=== PATIENT | male | born 1980 | race Native Hawaiian/Other Pacific Islander ===

== ENCOUNTER 2016-05-21 18:16 | Emergency (ER) | payer SELFPAY ==
[~2016-05-21] VITALS: Ht 190.5 cm; Wt 86.9 kg
[2016-05-21 18:18] VITALS: BP 121/72; PULSE 90; RESP 15; TEMP 98.4; O2SAT 98
[2016-05-21 21:06] LABS: BLOOD, URINE NEG (NEG); COMMENT (UR) CULT NOT INDICATED; CULTURE IF INDICATED CULT NOT INDICATED; GLUCOSE,URINE NEG (NEG); KETONE, URINE NEG (NEG); MUCUS URINE FEW /lpf (OCC); NITRITE,URINE NEG (NEG); PH, URINE 5.5 (5.0-8.5); URINE COLOR YELLOW (YELLW/STRAW)
[2016-05-21] MEDS ORDERED: KETOROLAC TROMETHAMINE 30 MG/ML (IVP) VIAL IV PUSH ONE (23:15)
[2016-05-21] MEDS ORDERED: SODIUM CHLOR 0.9% 1000 ML INJ 1,000 ML IV ONE (23:15)
[2016-05-22 00:37] LABS: AUTOMATED NEUTROPHIL # 4.8 TH/MM3 (1.8-7.7); BASOPHIL # 0.1 TH/MM3 (0-0.2); BASOPHIL % 0.8 % (0.0-2.0); EOSINOPHIL # 0.3 TH/MM3 (0-0.4); HEMATOCRIT 42.2 % (39.0-51.0); LYMPH % 46.9 % (9.0-44.0); LYMPHOCYTE # 5.5 TH/MM3 (1.0-4.8); MEAN CELL VOLUME 71.6 FL (80.0-100.0); MEAN CORPUSCULAR HEMOGLOBIN 23.2 PG (27.0-34.0); MEAN CORPUSCULAR HGB CONC 32.4 % (32.0-36.0); MONO % 8.5 % (0.0-8.0); NEUT % 40.8 % (16.0-70.0); PLATELET COUNT 210 TH/MM3 (150-450); RED CELL DISTRIBUTION WIDTH 15.2 % (11.6-17.2); WHITE BLOOD COUNT 11.7 TH/MM3 (4.0-11.0)
[2016-05-22 00:40] LABS: HEMO FLAGS AUTO DIFF
[2016-05-22 00:44] LABS: BANDS 1 % (0-6); EOSINOPHILS 6 % (0-4); NEUTROPHIL # MANUAL DIFF 3.6 TH/MM3 (1.8-7.7); PLATELET MORPHOLOGY NORMAL (NORMAL); POLYS (SEG NEUTROPHILS) 30 % (16-70); SCAN/DIFF FINAL DIFF MANUAL; TARGET CELLS 1+ (NORMAL); WBC DIFF SAMPLE 100
[2016-05-22 00:45] LABS: PLATELET ESTIMATE SMEAR NORMAL (NORMAL)
--- NOTE | 2016-05-22 01:14 | PD ---
HPI Chief Complaint: Flank/Kidney Pain Time Seen by Provider: 22:52 Travel History International Travel<30 days: No Contact w/Intl Traveler<30days: No Traveled to known affect area: No History of Present Illness HPI Patient is a 35 year old male who comes in complaining of left sided abdominal pain. He says this has been going on for the past few days. The pain started with some flank pain, but that went away and now he has had the left sided pain. He says the pain gets worse when he has a bowel movement. He has had some nausea, but denies vomiting. He has not had any fever or chills. He has not taken anything for pain. [facility] Past Medical History Medical History: Denies Significant Hx Tetanus Vaccination: > 5 Years Past Surgical History Surgical History: No Previous Surgery Social History Alcohol Use: No Tobacco Use: Yes Substance Use: No Allergies-Medications (Allergen,Severity, Reaction): Coded Allergies: No Known Allergies (Unverified , 05/21/16) Reported Meds & Prescriptions Reported Meds & Active Scripts Active No Active Prescriptions or Reported Medications Review of Systems Except as stated in HPI: all other systems reviewed are Neg General / Constitutional: No: Fever, Chills HENT: No: Headaches Cardiovascular: No: Chest Pain or Discomfort Respiratory: No: Shortness of Breath Gastrointestinal: Positive: Nausea, Abdominal Pain, No: Vomiting Genitourinary: No: Dysuria Musculoskeletal: No: Myalgias Skin: No Rash, No Change in Pigmentation Neurologic: No: Weakness, Dizziness Physical Exam Narrative GENERAL: Awake and alert in no acute distress. SKIN: Warm and dry. HEAD: Atraumatic. Normocephalic. EYES: Pupils equal and round. No scleral icterus. ENT: Mucous membranes pink and moist. NECK: Trachea midline. No JVD. CARDIOVASCULAR: Regular rate and rhythm. No murmur appreciated. RESPIRATORY: No accessory muscle use. Clear to auscultation. Breath sounds equal bilaterally. GASTROINTESTINAL: Abdomen soft, nondistended. Tender to the left lower quadrant. No rebound or guarding. No CVA tenderness. MUSCULOSKELETAL: No obvious deformities. No clubbing. No cyanosis. No edema. NEUROLOGICAL: Awake and alert. No obvious cranial nerve deficits. Motor grossly within normal limits. Normal speech. PSYCHIATRIC: Appropriate mood and affect; insight and judgment normal. Data Data Last Documented VS Vital Signs Date Time Temp Pulse Resp B/P Pulse Ox O2 Delivery O2 Flow Rate FiO2 05/21/16 18:18 98.4 90 15 121/72 98 Orders Urinalysis - C+S If Indicated (05/21/16 18:43) Complete Blood Count With Diff (05/21/16 23:10) Comprehensive Metabolic Panel (05/21/16 23:10) Ct Abd/Pel W Iv Contrast(Rout) (05/21/16 ) Ketorolac Inj (Toradol Inj) (05/21/16 23:15) Sodium Chlor 0.9% 1000 Ml Inj (Ns 1000 M (05/21/16 23:15) Labs Laboratory Tests Test 05/21/16 05/21/16 05/22/16 20:45 23:30 01:05 Urine Color YELLOW Urine Turbidity CLEAR Urine pH 5.5 Urine Specific [place] 1.015 Urine Protein NEG mg/dL Urine Glucose (UA) NEG mg/dL Urine Ketones NEG mg/dL Urine Occult Blood NEG Urine Nitrite NEG Urine Bilirubin NEG Urine Urobilinogen LESS THAN 2.0 MG/DL Urine Leukocyte Esterase NEG Urine Mucus FEW /lpf Microscopic Urinalysis Comment CULT NOT INDICATED White Blood Count 11.7 TH/MM3 Red Blood Count 5.90 MIL/MM3 Hemoglobin 13.7 GM/DL Hematocrit 42.2 % Mean Corpuscular Volume 71.6 FL Mean Corpuscular Hemoglobin 23.2 PG Mean Corpuscular Hemoglobin 32.4 % Concent Red Cell Distribution Width 15.2 % Platelet Count 210 TH/MM3 Mean Platelet Volume 9.1 FL Neutrophils (%) (Auto) 40.8 % Lymphocytes (%) (Auto) 46.9 % Monocytes (%) (Auto) 8.5 % Eosinophils (%) (Auto) 3.0 % Basophils (%) (Auto) 0.8 % Neutrophils # (Auto) 4.8 TH/MM3 Lymphocytes # (Auto) 5.5 TH/MM3 Monocytes # (Auto) 1.0 TH/MM3 Eosinophils # (Auto) 0.3 TH/MM3 Basophils # (Auto) 0.1 TH/MM3 CBC Comment AUTO DIFF Differential Total Cells 100 Counted Neutrophils % (Manual) 30 % Band Neutrophils % 1 % Lymphocytes % 55 % Monocytes % 8 % Eosinophils % 6 % Neutrophils # (Manual) 3.6 TH/MM3 Differential Comment FINAL DIFF MANUAL Platelet Estimate NORMAL Platelet Morphology Comment NORMAL Target Cells 1+ Sodium Level 142 MEQ/L Potassium Level 3.9 MEQ/L Chloride Level 108 MEQ/L Carbon Dioxide Level 27.7 MEQ/L Anion Gap 6 MEQ/L Blood Urea Nitrogen 11 MG/DL Creatinine 0.81 MG/DL Estimat Glomerular Filtration 108 ML/MIN Rate Random Glucose 81 MG/DL Calcium Level 8.1 MG/DL Aspartate Amino Transf 16 U/L (AST/SGOT) Alanine Aminotransferase 32 U/L (ALT/SGPT) Albumin 3.3 GM/DL MDM Medical Decision Making Medical Screen Exam Complete: Yes Emergency Medical Condition: Yes Differential Diagnosis Diverticulitis versus colitis versus UTI versus renal stone Narrative Course Patient is a 35-year-old male who comes in complaining of left-sided abdominal pain. Exam shows left lower quadrant abdominal tenderness. IV established, labs sent. Patient given IV fluids, Toradol. Patient to have CT of his abdomen and pelvis. Signed out to Dr. Reed to follow-up CAT scan and disposition appropriately. Scripts No Active Prescriptions or Reported Meds Condition: Stable Arlin Schmid MD May 22, 2016 01:14
[2016-05-22 01:44] LABS: ALT (GPT) 32 U/L (12-78); ANION GAP 6 MEQ/L (5-15); AST (GOT) 16 U/L (15-37); BICARBONATE 27.7 MEQ/L (21.0-32.0); BLOOD UREA NITROGEN 11 MG/DL (7-18); CHLORIDE 108 MEQ/L (98-107); GLOMERULAR FILTRATION RATE 108 ML/MIN (>89); POTASSIUM 3.9 MEQ/L (3.5-5.1); SODIUM (NA) 142 MEQ/L (136-145)
[2016-05-22 01:47] LABS: ALKALINE PHOSPHATASE 44 U/L (45-117); TOTAL BILIRUBIN ADULT 0.3 MG/DL (0.2-1.0)
[2016-05-22] MEDS ORDERED: IOHEXOL 350 MG/ML 10 ML VIAL (for RAD DIAG) IV ONE (02:00)
--- NOTE | 2016-05-22 02:18 | RADRPT ---
EXAM DATE/TIME: 05/22/2016 01:53 [place] COMPARISON: No previous studies available for comparison. INDICATIONS : Left lower quadrant pain for three days. IV CONTRAST: 100 cc Omnipaque 350 (iohexol) IV ORAL CONTRAST: No oral contrast ingested. RADIATION DOSE: 9.96 CTDIvol (mGy) MEDICAL HISTORY : None SURGICAL HISTORY : None. ENCOUNTER: Initial ACUITY: 3 days PAIN SCALE: 8/10 LOCATION: Left lower quadrant abdomen TECHNIQUE: Volumetric scanning of the abdomen and pelvis was performed. Using automated exposure control and ad justment of the mA and/or kV according to patient size, radiation dose was kept as low as reasonably achievable to obtain optimal diagnostic quality images. FINDINGS: LOWER LUNGS: The visualized lower lungs are clear. LIVER: There is heterogeneous fatty infiltration of the liver. No focal hepatic lesions seen. CT appearance of the gallbladder within normal limits. SPLEEN: Normal size without lesion. PANCREAS: Within normal limits. KIDNEYS: Normal in size and shape. There is no mass, stone or hydronephrosis. ADRENAL GLANDS: Within normal limits. VASCULAR: There is no aortic aneurysm. BOWEL/MESENTERY: Focally severe colitis seen of the proximal sigmoid colon and appears to be on the basis of diverticu litis. No abscess, perforation or obstruction. No perceptible mass. The appendix is well-visualized a nd appears normal. ABDOMINAL WALL: Within normal limits. RETROPERITONEUM: There is no lymphadenopathy. BLADDER: No wall thickening or mass. REPRODUCTIVE: Within normal limits. INGUINAL: There is no lymphadenopathy or hernia. MUSCULOSKELETAL: Within normal limits for patient age. CONCLUSION: 1. Uncomplicated sigmoid colitis it appears to be related to diverticular disease. 2. Heterogeneous fatty infiltration of the liver. Eugene Cardenas MD on May 22, 2016 at 2:14 Board Certified Radiologist. This report was verified electronically.
[2016-05-22] MEDS ORDERED: ZOFR4TAB3 SL (02:34)
[2016-05-22] MEDS ORDERED: METR-1 PO (02:34)
[2016-05-22] MEDS ORDERED: CIPR500T2 PO (02:34)
[2016-05-22] MEDS ORDERED: TRAM50TA PO (02:34)
--- NOTE | 2016-05-22 02:34 | PD ---
Data Data Last Documented VS Vital Signs Date Time Temp Pulse Resp B/P Pulse Ox O2 Delivery O2 Flow Rate FiO2 05/21/16 18:18 98.4 90 15 121/72 98 Orders Urinalysis - C+S If Indicated (05/21/16 18:43) Complete Blood Count With Diff (05/21/16 23:10) Comprehensive Metabolic Panel (05/21/16 23:10) Ketorolac Inj (Toradol Inj) (05/21/16 23:15) Sodium Chlor 0.9% 1000 Ml Inj (Ns 1000 M (05/21/16 23:15) Iohexol 350 Inj (Omnipaque 350 Inj) (05/22/16 02:00) Ct Abd/Pel W Iv Contrast(Rout) (05/22/16 ) Labs Laboratory Tests Test 05/21/16 05/21/16 05/22/16 20:45 23:30 01:05 Urine Color YELLOW Urine Turbidity CLEAR Urine pH 5.5 Urine Specific [place] 1.015 Urine Protein NEG mg/dL Urine Glucose (UA) NEG mg/dL Urine Ketones NEG mg/dL Urine Occult Blood NEG Urine Nitrite NEG Urine Bilirubin NEG Urine Urobilinogen LESS THAN 2.0 MG/DL Urine Leukocyte Esterase NEG Urine Mucus FEW /lpf Microscopic Urinalysis Comment CULT NOT INDICATED White Blood Count 11.7 TH/MM3 Red Blood Count 5.90 MIL/MM3 Hemoglobin 13.7 GM/DL Hematocrit 42.2 % Mean Corpuscular Volume 71.6 FL Mean Corpuscular Hemoglobin 23.2 PG Mean Corpuscular Hemoglobin 32.4 % Concent Red Cell Distribution Width 15.2 % Platelet Count 210 TH/MM3 Mean Platelet Volume 9.1 FL Neutrophils (%) (Auto) 40.8 % Lymphocytes (%) (Auto) 46.9 % Monocytes (%) (Auto) 8.5 % Eosinophils (%) (Auto) 3.0 % Basophils (%) (Auto) 0.8 % Neutrophils # (Auto) 4.8 TH/MM3 Lymphocytes # (Auto) 5.5 TH/MM3 Monocytes # (Auto) 1.0 TH/MM3 Eosinophils # (Auto) 0.3 TH/MM3 Basophils # (Auto) 0.1 TH/MM3 CBC Comment AUTO DIFF Differential Total Cells 100 Counted Neutrophils % (Manual) 30 % Band Neutrophils % 1 % Lymphocytes % 55 % Monocytes % 8 % Eosinophils % 6 % Neutrophils # (Manual) 3.6 TH/MM3 Differential Comment FINAL DIFF MANUAL Platelet Estimate NORMAL Platelet Morphology Comment NORMAL Target Cells 1+ Sodium Level 142 MEQ/L Potassium Level 3.9 MEQ/L Chloride Level 108 MEQ/L Carbon Dioxide Level 27.7 MEQ/L Anion Gap 6 MEQ/L Blood Urea Nitrogen 11 MG/DL Creatinine 0.81 MG/DL Estimat Glomerular Filtration 108 ML/MIN Rate Random Glucose 81 MG/DL Calcium Level 8.1 MG/DL Total Bilirubin 0.3 MG/DL Aspartate Amino Transf 16 U/L (AST/SGOT) Alanine Aminotransferase 32 U/L (ALT/SGPT) Alkaline Phosphatase 44 U/L Total Protein 6.3 GM/DL Albumin 3.3 GM/DL MDM Supervised Visit with [facility]: No Narrative Course This is a 35-year-old male who was signed out to me by Dr. Schmid who has left lower quadrant abdominal pain. Labs were obtained which were reassuring. CT scan demonstrates sigmoid diverticulitis. Patient is otherwise nontoxic appearing. I think is appropriate for outpatient management. I counseled him on returning if he develops fever, new or worsening pain, or inability to eat or drink. He'll be discharged with oral antibiotics and pain control. Diagnosis Primary Impression: Diverticulitis Qualified Code: K57.32 - Diverticulitis of large intestine without perforation or abscess without bleeding Patient Instructions: General Instructions Additional Instruction: Sometimes patients with diverticulitis require admission to the hospital for IV antibiotics. If you develop worsening or severe abdominal pain, persistent fevers, or inability to drink return to the emergency department. Follow a clear liquid diet for 3 days until you notice your symptoms improving, then slowly advance your diet. Complete your course of antibiotics. Follow up with your primary care physician as soon as possible to ensure you are improving. Med/Other Pt SpecificInfo: Prescription(s) given Scripts Ondansetron Odt (Zofran Odt)4 Mg Tab4 Mg SL Q6HR PRN (Nausea/Vomiting) #14 TAB Ref 0 Prov:Anahi Reed MD 05/22/16 Tramadol 50 Mg Tab50 Mg PO Q6H PRN (PAIN) #15 TAB Ref 0 Prov:Anahi Reed MD 05/22/16 Metronidazole (Flagyl)500 Mg [id number] Mg PO TID 10 Days Prov:Anahi Reed MD 05/22/16 Ciprofloxacin 500 Mg [id number] Mg PO BID 10 Days Prov:Anahi Reed MD 05/22/16 Disposition: 01 DISCHARGE HOME Condition: Stable Anahi Reed MD May 22, 2016 02:34
== END 2016-05-22 03:02 | disposition home or self-care (01) ==
LOC: NEPA 18:16
DX: K57.92 Diverticulitis of intestine, part unspecified, without perforation or abscess without bleeding (principal); Z72.0 Tobacco use
CPT/HCPCS: 74177; 80053; 81001; 85007; 85027; 96361; 96374; 99284; J1885; J7030; Q9967